=== PATIENT | male | born 1985 | race Caucasian/White ===

== ENCOUNTER 2020-04-21 18:59 | Emergency (ER) | payer MEDICARE, OTHER ==
[~2020-04-21] VITALS: Ht 170.2 cm; Wt 54.7 kg
[2020-04-21] MEDS ORDERED: LORazepam 1 MG TABLET PO ONE (20:30)
[2020-04-21 20:52] LABS: BASOPHILS % (AUTO) 0.4 % (0.0-2.0); EOSINOPHILS % (AUTO) 0.8 % (1.0-6.0); HEMATOCRIT 33.5 % (41-53); HEMOGLOBIN 11.4 g/dL (13.5-17.5); LYMPHOCYTES # (AUTO) 1.1 K/uL (1.0-4.8); LYMPHOCYTES % (AUTO) 28.6 % (22.0-44.0); MEAN CORPUSCULAR HEMOGLOBIN 33.2 pg (26.0-34.0); MEAN CORPUSCULAR HGB CONC 34.1 G/dL (31.0-37.0); MEAN CORPUSCULAR VOLUME 98 fL (80-100); MONOCYTES # (AUTO) 0.3 K/uL (0.1-1.0); NEUTROPHILS # (AUTO) 2.4 K/uL (1.8-7.7); NEUTROPHILS % (AUTO) 62.2 % (40.0-70.0); PLATELET COUNT (AUTO) 135 K/uL (150-450); RED BLOOD CELL COUNT(AUTO) 3.43 MIL/uL (4.50-5.90); RED CELL DISTRIBUTION WIDTH 13.4 % (11.5-14.5)
[2020-04-21 21:02] LABS: AMPHET/METH SCREEN,URINE POSITIVE (NEGATIVE); BARBITURATE SCREEN, URINE NEGATIVE (NEGATIVE); BENZODIAZEPINES SCREEN,URINE NEGATIVE (NEGATIVE); CANNABINOID SCREEN,URINE NEGATIVE (NEGATIVE); COCAINE SCREEN,URINE NEGATIVE (NEGATIVE); METHADONE SCREEN, URINE NEGATIVE (NEGATIVE); OPIATE SCREEN,URINE NEGATIVE (NEGATIVE)
[2020-04-21 21:12] LABS: PHENCYCLIDINE SCREEN,URINE NEGATIVE (NEGATIVE)
[2020-04-21 21:21] LABS: ANION GAP 8 mmol/L (8-16); CALCIUM, TOTAL 9.3 mg/dL (8.8-10.5); CARBON DIOXIDE 28 mmol/L (22-29); CHLORIDE 101 mmol/L (98-107); GLOMERULAR FILTR. RATE CALC > 60 mL/min (>60); GLUCOSE,RANDOM 90 mg/dL (70-110); POTASSIUM 3.4 mmol/L (3.5-5.1); SODIUM SERUM 137 mmol/L (136-145); UREA NITROGEN, BLOOD 12 mg/dL (7-18)
[2020-04-21 21:27] LABS: ALANINE AMINOTRANSFERASE 64 U/L (12-78); ALBUMIN 3.7 g/dL (3.4-5.0); ALKALINE PHOSPHATASE 109 U/L (46-116); ASPARTATE AMINOTRANSFERASE 38 U/L (15-37); BILIRUBIN,TOTAL 0.7 mg/dL (0.1-1.0); TOTAL PROTEIN, SERUM 6.7 g/dL (6.4-8.2)
[2020-04-22 01:30] VITALS: BP 120/80
== END 2020-04-22 01:40 | disposition home or self-care (01) ==
LOC: EMS 19:00
DX: R07.9 Chest pain, unspecified (principal); F15.10 Other stimulant abuse, uncomplicated; F17.210 Nicotine dependence, cigarettes, uncomplicated
CPT/HCPCS: 36415; 71045; 80053; 80307; 84484; 85025; 93005; 99285; G0480

== ENCOUNTER 2020-04-22 16:34 | Emergency (ER) | payer MEDICARE, OTHER ==
[~2020-04-22] VITALS: Ht 170.2 cm; Wt 68.2 kg
[2020-04-22 17:40] VITALS: BP 121/91
== END 2020-04-22 19:07 | disposition left against medical advice (07) ==
LOC: EMS 16:36
DX: F15.10 Other stimulant abuse, uncomplicated (principal); F17.210 Nicotine dependence, cigarettes, uncomplicated; V49.9XXA Car occupant (driver) (passenger) injured in unspecified traffic accident, initial encounter; Y93.89 Activity, other specified; Y92.488 Other paved roadways as the place of occurrence of the external cause; Y99.8 Other external cause status

== ENCOUNTER 2020-05-11 18:56 | Inpatient (IN) | payer MEDICARE, MEDICAID ==
[~2020-05-11] VITALS: Ht 167.6 cm; Wt 63.6 kg
[2020-05-11 21:00] LABS: BASOPHILS % (AUTO) 0.7 % (0.0-2.0); EOSINOPHILS % (AUTO) 2.7 % (1.0-6.0); HEMATOCRIT 33.9 % (41-53); HEMOGLOBIN 11.6 g/dL (13.5-17.5); LYMPHOCYTES # (AUTO) 1.3 K/uL (1.0-4.8); MEAN CORPUSCULAR HEMOGLOBIN 33.7 pg (26.0-34.0); MEAN CORPUSCULAR HGB CONC 34.2 G/dL (31.0-37.0); MEAN CORPUSCULAR VOLUME 99 fL (80-100); MONOCYTES # (AUTO) 0.6 K/uL (0.1-1.0); MONOCYTES % (AUTO) 12.8 % (2.0-9.0); NEUTROPHILS # (AUTO) 2.8 K/uL (1.8-7.7); NEUTROPHILS % (AUTO) 56.8 % (40.0-70.0); PLATELET COUNT (AUTO) 116 K/uL (150-450); RED BLOOD CELL COUNT(AUTO) 3.43 MIL/uL (4.50-5.90); RED CELL DISTRIBUTION WIDTH 14.3 % (11.5-14.5)
[2020-05-11 21:14] LABS: ANION GAP 7 mmol/L (8-16); CALCIUM, TOTAL 8.4 mg/dL (8.8-10.5); CARBON DIOXIDE 31 mmol/L (22-29); CHLORIDE 106 mmol/L (98-107); CREATININE 0.93 mg/dL (0.60-1.30); GLOMERULAR FILTR. RATE CALC > 60 mL/min (>60); GLUCOSE,RANDOM 129 mg/dL (70-110); POTASSIUM 3.7 mmol/L (3.5-5.1); SODIUM SERUM 144 mmol/L (136-145); UREA NITROGEN, BLOOD 13 mg/dL (7-18)
[2020-05-11 21:19] LABS: ALANINE AMINOTRANSFERASE 33 U/L (12-78); ALBUMIN 3.6 g/dL (3.4-5.0); ALKALINE PHOSPHATASE 160 U/L (46-116); ASPARTATE AMINOTRANSFERASE 22 U/L (15-37); BILIRUBIN,TOTAL 0.3 mg/dL (0.1-1.0); TOTAL PROTEIN, SERUM 7.3 g/dL (6.4-8.2)
[2020-05-11 23:06] LABS: COVID AG,FIA SOURCE NASOPHARYNGEAL
[2020-05-12] MEDS ORDERED: LORazepam 2 MG TABLET PO PRN (01:15)
[2020-05-12] MEDS ORDERED: OLANZapine 5 MG RAPDIS TABLET PO PRN (01:15)
[2020-05-12] MEDS ORDERED: ZOLPIDEM TARTRATE 10 MG TABLET PO PRN (01:15)
[2020-05-12] MEDS ORDERED: ACETAMINOPHEN 500 MG TABLET PO ONE (05:30)
[2020-05-12 08:51] VITALS: BP 112/80
[2020-05-12 16:00] VITALS: BP 113/76
[2020-05-12] MEDS ORDERED: GuaiFENesin/D-METHORPHAN [SUGAR-FREE] 200-20MG/10 ML SYRUP UDCUP PO PRN (17:30)
[2020-05-12] MEDS ORDERED: MAGNESIUM HYDROXIDE SUSPENSION 30 ML UDCUP PO PRN (17:30)
[2020-05-12] MEDS ORDERED: PROMETHAZINE HCL 25 MG TABLET PO PRN (17:30)
[2020-05-12] MEDS ORDERED: LOPERAMIDE HCL 2 MG CAPSULE PO PRN (17:30)
[2020-05-12] MEDS ORDERED: TUBERCULIN, PURIFIED PROTEIN DERIVATIVE 5 TU/0.1 ML SYRINGE ID ONE (17:30)
[2020-05-12] MEDS ORDERED: MAG HYDROX/AL HYDROX/SIMETH ES 30 ML SUSPENSION UDCUP PO PRN (17:30)
[2020-05-12] MEDS ORDERED: HydrOXYzine PAMOATE 50 MG CAPSULE PO PRN (17:30)
[2020-05-12] MEDS ORDERED: OLANZapine 5 MG RAPDIS TABLET PO SCH (21:00)
[2020-05-13 08:00] VITALS: BP 122/74
[2020-05-13] MEDS: THIAMINE 100 MG TABLET PO SCH ×2 (08:14→16:24)
[2020-05-13] MEDS: MULTIVITAMINS WITH MINERALS, THERAPEUTIC TABLET PO SCH (08:14)
[2020-05-13] MEDS: ACETAMINOPHEN 325 MG TABLET PO PRN ×3 (08:15→21:11)
[2020-05-13] MEDS: NALTREXONE HCL 50 MG TABLET PO SCH (08:15)
[2020-05-13] MEDS: FOLIC ACID 1 MG TABLET PO SCH (08:15)
[2020-05-13] MEDS: OMEGA-3/DHA/EPA/FISH OIL 1,000 MG CAPSULE PO SCH (08:15)
[2020-05-13] MEDS ORDERED: FLUoxetine HCL 20 MG CAPSULE PO SCH ×2 (09:00→21:00)
[2020-05-13 09:05] LABS: AMPHET/METH SCREEN,URINE NEGATIVE (NEGATIVE); BARBITURATE SCREEN, URINE NEGATIVE (NEGATIVE); BENZODIAZEPINES SCREEN,URINE NEGATIVE (NEGATIVE); CANNABINOID SCREEN,URINE NEGATIVE (NEGATIVE); COCAINE SCREEN,URINE NEGATIVE (NEGATIVE); METHADONE SCREEN, URINE NEGATIVE (NEGATIVE); OPIATE SCREEN,URINE NEGATIVE (NEGATIVE); PHENCYCLIDINE SCREEN,URINE NEGATIVE (NEGATIVE)
[2020-05-13 09:06] LABS: APPEARANCE,URINE CLEAR (CLEAR); BILIRUBIN,URINE NEGATIVE (NEGATIVE); GLUCOSE, URINE (UA) NEGATIVE (NEGATIVE); KETONES,URINE NEGATIVE (NEGATIVE); LEUKOCYTE ESTERASE ,URINE NEGATIVE (NEGATIVE); NITRATE,URINE NEGATIVE (NEGATIVE); OCCULT BLOOD,URINE NEGATIVE (NEGATIVE); PH,URINE 6.5 (5.0-8.0); PROTEIN,URINE NEGATIVE (NEGATIVE); UROBILINOGEN,URINE 0.2 mg/dL (<=1.0)
[2020-05-13 10:34] LABS: ANION GAP 7 mmol/L (8-16); CALCIUM, TOTAL 8.9 mg/dL (8.8-10.5); CARBON DIOXIDE 29 mmol/L (22-29); CHLORIDE 109 mmol/L (98-107); CHOL/HDL RATIO 2.3 (4.2-7.3); CHOLESTEROL 123 mg/dL (131-200); CREATINE KINASE, TOTAL ONLY 58 U/L (39-308); CREATININE 1.06 mg/dL (0.60-1.30); FREE T4 (FREE THYROXINE) 0.92 ng/dL (0.76-1.46); GLOMERULAR FILTR. RATE CALC > 60 mL/min (>60); GLUCOSE,RANDOM 84 mg/dL (70-110); HDL CHOLESTEROL 54 mg/dL (40-60); HEMOGLOBIN A1C 4.9 % (3.8-5.6); LDL CHOL (CALC.) 54 mg/dL (0-130); POTASSIUM 4.6 mmol/L (3.5-5.1); SODIUM SERUM 145 mmol/L (136-145); TRIGLYCERIDES 74 mg/dL (15-150); UREA NITROGEN, BLOOD 24 mg/dL (7-18)
[2020-05-13 10:59] LABS: THYROID STIMULATING HORMONE 1.04 uIU/mL (0.36-3.74)
[2020-05-13 16:00] VITALS: BP 112/71
[2020-05-13] MEDS: OLANZapine 10 MG RAPDIS TABLET PO SCH (20:07)
[2020-05-14] MEDS: NALTREXONE HCL 50 MG TABLET PO SCH (08:46)
[2020-05-14] MEDS: OMEGA-3/DHA/EPA/FISH OIL 1,000 MG CAPSULE PO SCH (08:46)
[2020-05-14] MEDS: MULTIVITAMINS WITH MINERALS, THERAPEUTIC TABLET PO SCH (08:46)
[2020-05-14] MEDS: FOLIC ACID 1 MG TABLET PO SCH (08:46)
[2020-05-14] MEDS: THIAMINE 100 MG TABLET PO SCH ×2 (08:46→16:11)
[2020-05-14 09:31] VITALS: BP 102/59
[2020-05-14 16:11] VITALS: BP 127/64
[2020-05-14] MEDS: ACETAMINOPHEN 325 MG TABLET PO PRN ×2 (16:12→20:21)
[2020-05-14] MEDS: OLANZapine 10 MG RAPDIS TABLET PO SCH (20:21)
[2020-05-15] MEDS: ACETAMINOPHEN 325 MG TABLET PO PRN ×2 (04:13→16:54)
[2020-05-15 08:00] VITALS: BP 122/77
[2020-05-15] MEDS: NALTREXONE HCL 50 MG TABLET PO SCH (08:21)
[2020-05-15] MEDS: OMEGA-3/DHA/EPA/FISH OIL 1,000 MG CAPSULE PO SCH (08:21)
[2020-05-15] MEDS: THIAMINE 100 MG TABLET PO SCH ×2 (08:21→16:54)
[2020-05-15] MEDS: MULTIVITAMINS WITH MINERALS, THERAPEUTIC TABLET PO SCH (08:21)
[2020-05-15] MEDS: FOLIC ACID 1 MG TABLET PO SCH (08:21)
[2020-05-15] MEDS ORDERED: PARoxetine HCL 20 MG TABLET PO SCH (09:00)
[2020-05-15 16:51] VITALS: BP 120/73
[2020-05-15 16:52] VITALS: BP 120/73
[2020-05-15] MEDS: PARoxetine HCL 20 MG TABLET PO SCH (20:15)
[2020-05-15] MEDS: OLANZapine 10 MG RAPDIS TABLET PO SCH (20:15)
[2020-05-16] MEDS: MULTIVITAMINS WITH MINERALS, THERAPEUTIC TABLET PO SCH (08:12)
[2020-05-16] MEDS: NALTREXONE HCL 50 MG TABLET PO SCH (08:13)
[2020-05-16] MEDS: THIAMINE 100 MG TABLET PO SCH ×2 (08:13→16:03)
[2020-05-16] MEDS: FOLIC ACID 1 MG TABLET PO SCH (08:13)
[2020-05-16] MEDS: OMEGA-3/DHA/EPA/FISH OIL 1,000 MG CAPSULE PO SCH (08:14)
[2020-05-16 08:39] VITALS: BP 125/67
[2020-05-16] MEDS: MAGNESIUM OXIDE 400 MG TABLET PO SCH (09:03)
[2020-05-16 10:27] LABS: PROTHROMBIN TIME 10.9 SEC (9.4-11.6)
[2020-05-16] MEDS: ACETAMINOPHEN 325 MG TABLET PO PRN (16:03)
[2020-05-16 16:05] VITALS: BP 120/67
[2020-05-16] MEDS: PARoxetine HCL 20 MG TABLET PO SCH (20:16)
[2020-05-16] MEDS: OLANZapine 10 MG RAPDIS TABLET PO SCH (20:16)
[2020-05-17 08:50] VITALS: BP 140/88
[2020-05-17] MEDS: THIAMINE 100 MG TABLET PO SCH ×2 (08:52→16:15)
[2020-05-17] MEDS: MAGNESIUM OXIDE 400 MG TABLET PO SCH (08:52)
[2020-05-17] MEDS: FOLIC ACID 1 MG TABLET PO SCH (08:52)
[2020-05-17] MEDS: OMEGA-3/DHA/EPA/FISH OIL 1,000 MG CAPSULE PO SCH (08:52)
[2020-05-17] MEDS: MULTIVITAMINS WITH MINERALS, THERAPEUTIC TABLET PO SCH (08:53)
[2020-05-17] MEDS: NALTREXONE HCL 50 MG TABLET PO SCH (08:53)
[2020-05-17] MEDS: ACETAMINOPHEN 325 MG TABLET PO PRN (08:54)
[2020-05-17 16:33] VITALS: BP 124/76
[2020-05-17] MEDS: PARoxetine HCL 20 MG TABLET PO SCH (20:14)
[2020-05-17] MEDS: OLANZapine 10 MG RAPDIS TABLET PO SCH (20:14)
[2020-05-18 07:11] LABS: ALANINE AMINOTRANSFERASE 33 U/L (12-78); ALBUMIN 3.8 g/dL (3.4-5.0); ALKALINE PHOSPHATASE 93 U/L (46-116); ANION GAP 9 mmol/L (8-16); ASPARTATE AMINOTRANSFERASE 19 U/L (15-37); BILIRUBIN,TOTAL 0.3 mg/dL (0.1-1.0); CALCIUM, TOTAL 9.1 mg/dL (8.8-10.5); CARBON DIOXIDE 26 mmol/L (22-29); CHLORIDE 110 mmol/L (98-107); CREATININE 1.14 mg/dL (0.60-1.30); GLOMERULAR FILTR. RATE CALC > 60 mL/min (>60); GLUCOSE,RANDOM 173 mg/dL (70-110); POTASSIUM 4.5 mmol/L (3.5-5.1); SODIUM SERUM 145 mmol/L (136-145); UREA NITROGEN, BLOOD 32 mg/dL (7-18)
[2020-05-18 08:17] LABS: CREATINE KINASE, TOTAL ONLY 34 U/L (39-308)
[2020-05-18] MEDS: MULTIVITAMINS WITH MINERALS, THERAPEUTIC TABLET PO SCH (08:28)
[2020-05-18] MEDS: OMEGA-3/DHA/EPA/FISH OIL 1,000 MG CAPSULE PO SCH (08:28)
[2020-05-18] MEDS: NALTREXONE HCL 50 MG TABLET PO SCH (08:29)
[2020-05-18] MEDS: MAGNESIUM OXIDE 400 MG TABLET PO SCH (08:29)
[2020-05-18] MEDS: THIAMINE 100 MG TABLET PO SCH ×2 (08:29→16:25)
[2020-05-18] MEDS: FOLIC ACID 1 MG TABLET PO SCH (08:29)
[2020-05-18 08:43] VITALS: BP 141/78
[2020-05-18 15:38] LABS: COVID AG,FIA SOURCE NASOPHARYNGEAL
[2020-05-18 19:01] VITALS: BP 124/74
[2020-05-18] MEDS: PARoxetine HCL 20 MG TABLET PO SCH (20:00)
[2020-05-18] MEDS: ACETAMINOPHEN 325 MG TABLET PO PRN (20:01)
[2020-05-18] MEDS: OLANZapine 10 MG RAPDIS TABLET PO SCH (20:01)
[2020-05-19 05:49] VITALS: BP 122/82
[2020-05-19 08:30] VITALS: BP 127/77
[2020-05-19] MEDS: OMEGA-3/DHA/EPA/FISH OIL 1,000 MG CAPSULE PO SCH (08:45)
[2020-05-19] MEDS: FOLIC ACID 1 MG TABLET PO SCH (08:45)
[2020-05-19] MEDS: MAGNESIUM OXIDE 400 MG TABLET PO SCH (08:45)
[2020-05-19] MEDS: NALTREXONE HCL 50 MG TABLET PO SCH (08:46)
[2020-05-19] MEDS: THIAMINE 100 MG TABLET PO SCH ×2 (08:46→16:24)
[2020-05-19] MEDS: MULTIVITAMINS WITH MINERALS, THERAPEUTIC TABLET PO SCH (09:00)
[2020-05-19 10:07] LABS: HIV 1-2 SCREEN 4TH GEN W/RFLX Non Reactive (Non Reactive)
[2020-05-19 16:58] VITALS: BP 128/78
[2020-05-19] MEDS: OLANZapine 10 MG RAPDIS TABLET PO SCH (20:25)
[2020-05-19] MEDS: PARoxetine HCL 20 MG TABLET PO SCH (20:26)
[2020-05-20 08:54] VITALS: BP 124/76
[2020-05-20] MEDS: NALTREXONE HCL 50 MG TABLET PO SCH (08:58)
[2020-05-20] MEDS: MULTIVITAMINS WITH MINERALS, THERAPEUTIC TABLET PO SCH (08:58)
[2020-05-20] MEDS: OMEGA-3/DHA/EPA/FISH OIL 1,000 MG CAPSULE PO SCH (08:58)
[2020-05-20] MEDS: MAGNESIUM OXIDE 400 MG TABLET PO SCH (08:58)
[2020-05-20] MEDS: FOLIC ACID 1 MG TABLET PO SCH (08:58)
[2020-05-20] MEDS: THIAMINE 100 MG TABLET PO SCH ×2 (08:58→16:20)
[2020-05-20] MEDS: PARoxetine HCL 20 MG TABLET PO SCH (20:12)
[2020-05-20] MEDS: OLANZapine 5 MG RAPDIS TABLET PO SCH (20:13)
[2020-05-21 03:56] VITALS: BP 126/82
[2020-05-21 08:00] VITALS: BP 128/72
[2020-05-21] MEDS: OMEGA-3/DHA/EPA/FISH OIL 1,000 MG CAPSULE PO SCH (08:04)
[2020-05-21] MEDS: THIAMINE 100 MG TABLET PO SCH ×2 (08:04→16:07)
[2020-05-21] MEDS: NALTREXONE HCL 50 MG TABLET PO SCH (08:04)
[2020-05-21] MEDS: FOLIC ACID 1 MG TABLET PO SCH (08:05)
[2020-05-21] MEDS: MAGNESIUM OXIDE 400 MG TABLET PO SCH (08:05)
[2020-05-21] MEDS: MULTIVITAMINS WITH MINERALS, THERAPEUTIC TABLET PO SCH (08:06)
[2020-05-21] MEDS: ACETAMINOPHEN 325 MG TABLET PO PRN ×2 (09:36→16:08)
[2020-05-21 16:30] VITALS: BP 131/77
[2020-05-21] MEDS: OLANZapine 5 MG RAPDIS TABLET PO SCH (20:02)
[2020-05-21] MEDS: PARoxetine HCL 20 MG TABLET PO SCH (20:03)
[2020-05-22] MEDS: NALTREXONE HCL 50 MG TABLET PO SCH (08:50)
[2020-05-22] MEDS: OMEGA-3/DHA/EPA/FISH OIL 1,000 MG CAPSULE PO SCH (08:50)
[2020-05-22] MEDS: MAGNESIUM OXIDE 400 MG TABLET PO SCH (08:50)
[2020-05-22] MEDS: FOLIC ACID 1 MG TABLET PO SCH (08:50)
[2020-05-22] MEDS: THIAMINE 100 MG TABLET PO SCH ×2 (08:50→16:26)
[2020-05-22] MEDS: MULTIVITAMINS WITH MINERALS, THERAPEUTIC TABLET PO SCH (08:50)
[2020-05-22 09:00] VITALS: BP 133/85
[2020-05-22 16:42] VITALS: BP 114/85
[2020-05-22] MEDS ORDERED: QUEtiapine FUMARATE 100 MG TABLET PO PRN (20:45)
[2020-05-22] MEDS: PARoxetine HCL 20 MG TABLET PO SCH (21:17)
[2020-05-22] MEDS: QUEtiapine FUMARATE 200 MG TABLET PO SCH (21:17)
[2020-05-23] MEDS: ACETAMINOPHEN 325 MG TABLET PO PRN (05:56)
[2020-05-23] MEDS: MAGNESIUM OXIDE 400 MG TABLET PO SCH (08:15)
[2020-05-23] MEDS: NALTREXONE HCL 50 MG TABLET PO SCH (08:15)
[2020-05-23] MEDS: OMEGA-3/DHA/EPA/FISH OIL 1,000 MG CAPSULE PO SCH (08:16)
[2020-05-23] MEDS: MULTIVITAMINS WITH MINERALS, THERAPEUTIC TABLET PO SCH (08:16)
[2020-05-23 08:51] VITALS: BP 138/91
[2020-05-23 16:00] VITALS: BP 134/83
[2020-05-23] MEDS: QUEtiapine FUMARATE 200 MG TABLET PO SCH (20:12)
[2020-05-23] MEDS: PARoxetine HCL 20 MG TABLET PO SCH (20:12)
[2020-05-24 05:33] VITALS: BP 130/84
[2020-05-24 08:55] VITALS: BP 119/82
[2020-05-24] MEDS: OMEGA-3/DHA/EPA/FISH OIL 1,000 MG CAPSULE PO SCH (09:00)
[2020-05-24] MEDS: MULTIVITAMINS WITH MINERALS, THERAPEUTIC TABLET PO SCH (09:00)
[2020-05-24] MEDS: NALTREXONE HCL 50 MG TABLET PO SCH (09:00)
[2020-05-24] MEDS: MAGNESIUM OXIDE 400 MG TABLET PO SCH (09:00)
[2020-05-24 09:02] VITALS: BP 119/82
[2020-05-24 10:02] VITALS: BP 129/3
[2020-05-24] MEDS ORDERED: QUET200T PO (13:23)
[2020-05-24] MEDS ORDERED: PARO10TA89 PO (13:23)
[2020-05-24] MEDS ORDERED: NALT50TA6 PO (13:23)
[2020-05-24] MEDS ORDERED: MAGOX PO (13:23)
[2020-05-24] MEDS ORDERED: OMEG100033 PO (13:23)
[2020-05-24] MEDS ORDERED: MULT-1239 PO (13:23)
[2020-05-24 16:31] VITALS: BP 122/68
== END 2020-05-24 16:15 | disposition home or self-care (01) | DRG 885 ==
LOC: EMS 18:56 → 3EX 05-12 07:58
PROVIDERS: ADMIT Psychiatry & Neurology Psychiatry; ATTEND Psychiatry & Neurology Psychiatry
DX: F33.2 Major depressive disorder, recurrent severe without psychotic features (principal); B18.1 Chronic viral hepatitis B without delta-agent; R45.851 Suicidal ideations; F25.9 Schizoaffective disorder, unspecified; D64.9 Anemia, unspecified; F15.10 Other stimulant abuse, uncomplicated; E87.6 Hypokalemia; R73.9 Hyperglycemia, unspecified; Z59.0 Homelessness; F41.9 Anxiety disorder, unspecified; Z91.19 Patient's noncompliance with other medical treatment and regimen; F19.10 Other psychoactive substance abuse, uncomplicated; F17.210 Nicotine dependence, cigarettes, uncomplicated; F10.20 Alcohol dependence, uncomplicated; Y90.9 Presence of alcohol in blood, level not specified; E83.42 Hypomagnesemia; Z87.828 Personal history of other (healed) physical injury and trauma; Z91.14 Patient's other noncompliance with medication regimen; Z20.828 Contact with and (suspected) exposure to other viral communicable diseases
CPT/HCPCS: 80074; 83036; 83735; 84439; 84443; 86592; 86692; 86704; 86706; 86707; 87350; 87389; 87426; 87517; 93005; G0378; G0480

== ENCOUNTER 2021-05-04 12:08 | Inpatient (IN) | payer MEDICARE, MEDICAID ==
[~2021-05-04] VITALS: Ht 172.7 cm; Wt 78.5 kg
[~2021-05-04 12:08] MED LIST: DIVA-80 PO; LITH300C3 PO; NALT50TA PO; OMEG-135 PO
[2021-05-04] MEDS ORDERED: HALO5TAB2 PO (16:02)
[2021-05-04] MEDS ORDERED: ZOLPIDEM TARTRATE 10 MG TABLET PO PRN (18:00)
[2021-05-04] MEDS ORDERED: LORazepam 2 MG TABLET PO PRN (18:00)
[2021-05-04] MEDS ORDERED: HALOPERIDOL 5 MG TABLET PO PRN (18:00)
[2021-05-04] MEDS ORDERED: INFLUENZA VIRUS VACCINE QVS 2021-22 (6MO+)/PF 60 MCG/0.5 ML SYRINGE IM. ONE (18:15)
[2021-05-04 20:24] VITALS: BP 130/89
[2021-05-05 00:59] VITALS: BP 129/81
[2021-05-05] MEDS ORDERED: NICOTINE 14 MG/24 HOUR PATCH TD PRN (06:30)
[2021-05-05] MEDS ORDERED: ALBUTEROL SULFATE HFA 90 MCG/PUFF 8 GM INHALER IH PRN (06:30)
[2021-05-05] MEDS ORDERED: MAG HYDROX/AL HYDROX/SIMETH ES 30 ML SUSPENSION UDCUP PO PRN (06:30)
[2021-05-05] MEDS ORDERED: PETROLATUM,WHITE 28 GM JELLY TP PRN (06:30)
[2021-05-05] MEDS ORDERED: GuaiFENesin/D-METHORPHAN [SUGAR-FREE] 200-20MG/10 ML SYRUP UDCUP PO PRN (06:30)
[2021-05-05] MEDS ORDERED: DOCUSATE SODIUM 100 MG CAPSULE PO PRN (06:30)
[2021-05-05] MEDS ORDERED: MAGNESIUM HYDROXIDE SUSPENSION 30 ML UDCUP PO PRN (06:30)
[2021-05-05] MEDS ORDERED: CloNIDine HCL 0.1 MG TABLET PO PRN (06:30)
[2021-05-05] MEDS ORDERED: ONDANSETRON HCL 4 MG TABLET PO PRN (06:30)
[2021-05-05] MEDS ORDERED: IBUPROFEN 400 MG TABLET PO PRN (06:30)
[2021-05-05 08:01] LABS: BASOPHILS % (AUTO) 0.5 % (0.0-2.0); EOSINOPHILS % (AUTO) 4.5 % (1.0-6.0); HEMATOCRIT 39.6 % (41-53); HEMOGLOBIN 13.3 g/dL (13.5-17.5); LYMPHOCYTES # (AUTO) 1.3 K/uL (1.0-4.8); LYMPHOCYTES % (AUTO) 35.8 % (22.0-44.0); MEAN CORPUSCULAR HEMOGLOBIN 33.6 pg (26.0-34.0); MEAN CORPUSCULAR HGB CONC 33.6 G/dL (31.0-37.0); MEAN CORPUSCULAR VOLUME 100 fL (80-100); MONOCYTES # (AUTO) 0.3 K/uL (0.1-1.0); MONOCYTES % (AUTO) 8.7 % (2.0-9.0); NEUTROPHILS # (AUTO) 1.8 K/uL (1.8-7.7); NEUTROPHILS % (AUTO) 50.5 % (40.0-70.0); PLATELET COUNT (AUTO) 77 K/uL (150-450); RED BLOOD CELL COUNT(AUTO) 3.97 MIL/uL (4.50-5.90); RED CELL DISTRIBUTION WIDTH 13.6 % (11.5-14.5)
[2021-05-05 08:23] LABS: ANION GAP 6 mmol/L (8-16); CARBON DIOXIDE 27 mmol/L (22-29); CHLORIDE 109 mmol/L (98-107); CREATININE 0.85 mg/dL (0.60-1.30); GLUCOSE,RANDOM 97 mg/dL (70-110); POTASSIUM 3.9 mmol/L (3.5-5.1); SODIUM SERUM 142 mmol/L (136-145); UREA NITROGEN, BLOOD 13 mg/dL (7-18)
[2021-05-05 08:24] LABS: ALANINE AMINOTRANSFERASE 36 U/L (12-78); ALBUMIN 3.9 g/dL (3.4-5.0); ALKALINE PHOSPHATASE 74 U/L (46-116); ASPARTATE AMINOTRANSFERASE 15 U/L (15-37); BILIRUBIN,TOTAL 0.6 mg/dL (0.1-1.0); CALCIUM, TOTAL 9.3 mg/dL (8.8-10.5); CHOLESTEROL 116 mg/dL (131-200); FREE T4 (FREE THYROXINE) 1.03 ng/dL (0.76-1.46); GLOMERULAR FILTR. RATE CALC > 60 mL/min (>60); HDL CHOLESTEROL 39 mg/dL (40-60); LDL CHOL (CALC.) 54 mg/dL (0-130); THYROID STIMULATING HORMONE 0.88 uIU/mL (0.36-3.74); TOTAL PROTEIN, SERUM 7.3 g/dL (6.4-8.2); TRIGLYCERIDES 115 mg/dL (15-150)
[2021-05-05 08:28] VITALS: BP 110/67
[2021-05-05] MEDS: NICOTINE 14 MG/24 HOUR PATCH TD SCH (09:20)
[2021-05-05] MEDS: BENZTROPINE MESYLATE 1 MG TABLET PO SCH (11:09)
[2021-05-05] MEDS: ACETAMINOPHEN 325 MG TABLET PO PRN (11:16)
[2021-05-05 16:10] VITALS: BP 124/76
[2021-05-05] MEDS: TraZODone HCL 150 MG TABLET PO SCH (20:33)
[2021-05-05] MEDS: LITHIUM CARBONATE 300 MG CAPSULE PO SCH (20:33)
[2021-05-05] MEDS: HALOPERIDOL 10 MG TABLET PO SCH (20:33)
[2021-05-05] MEDS: DIVALPROEX SODIUM 500 MG ER TABLET PO SCH (20:34)
[2021-05-06 05:15] VITALS: BP 111/70
[2021-05-06 08:23] VITALS: BP 115/71
[2021-05-06] MEDS: BENZTROPINE MESYLATE 1 MG TABLET PO SCH (08:53)
[2021-05-06] MEDS: NICOTINE 14 MG/24 HOUR PATCH TD SCH (08:53)
[2021-05-06 16:25] VITALS: BP 106/63
[2021-05-06] MEDS: ACETAMINOPHEN 325 MG TABLET PO PRN (19:23)
[2021-05-06] MEDS: HALOPERIDOL 10 MG TABLET PO SCH (20:00)
[2021-05-06] MEDS: TraZODone HCL 150 MG TABLET PO SCH (20:00)
[2021-05-06] MEDS: DIVALPROEX SODIUM 500 MG ER TABLET PO SCH (20:00)
[2021-05-06] MEDS: LITHIUM CARBONATE 300 MG CAPSULE PO SCH (20:01)
[2021-05-07 05:37] VITALS: BP 100/65
[2021-05-07 08:26] VITALS: BP 105/61
[2021-05-07] MEDS: NICOTINE 14 MG/24 HOUR PATCH TD SCH (08:29)
[2021-05-07] MEDS: BENZTROPINE MESYLATE 1 MG TABLET PO SCH (08:29)
[2021-05-07] MEDS: ACETAMINOPHEN 325 MG TABLET PO PRN (08:39)
[2021-05-07] MEDS ORDERED: HALO10 PO (12:05)
[2021-05-07] MEDS ORDERED: LITH300C3 PO (12:06)
[2021-05-07] MEDS ORDERED: BENZ1TAB10 PO (12:07)
[2021-05-07] MEDS ORDERED: TRAZ150T80 PO (12:07)
[2021-05-07 16:16] VITALS: BP 138/67
== END 2021-05-07 16:30 | disposition home or self-care (01) | DRG 885 ==
LOC: B2X 17:57
PROVIDERS: ADMIT Psychiatry & Neurology Child & Adolescent Psychiatry; ATTEND Psychiatry & Neurology Child & Adolescent Psychiatry
DX: F20.0 Paranoid schizophrenia (principal); D72.819 Decreased white blood cell count, unspecified; F10.10 Alcohol abuse, uncomplicated; F20.9 Schizophrenia, unspecified; F32.A Depression, unspecified; F41.9 Anxiety disorder, unspecified; D64.9 Anemia, unspecified; Z91.011 Allergy to milk products; Z79.899 Other long term (current) drug therapy; Z91.19 Patient's noncompliance with other medical treatment and regimen; Z71.51 Drug abuse counseling and surveillance of drug abuser
CPT/HCPCS: 80053; 80061; 83036; 84439; 84443; 85025

== ENCOUNTER 2023-03-17 08:48 | Emergency (ER) | payer MEDICARE, OTHER ==
[~2023-03-17] VITALS: Ht 177.8 cm; Wt 78.5 kg
[~2023-03-17 08:48] MED LIST changes: +BENZ1TAB84 PO; -DIVA-80 PO; +DIVA500T53 PO; +HALO10TA21 PO; -NALT50TA PO; -OMEG-135 PO; +TRAZ150T80 PO
[2023-03-17 08:51] VITALS: TEMP 98
[2023-03-17 09:55] LABS: BASOPHILS % (AUTO) 1.1 % (0.0-2.0); EOSINOPHILS % (AUTO) 3.5 % (1.0-6.0); HEMATOCRIT 46.8 % (41-53); HEMOGLOBIN 16.2 g/dL (13.5-17.5); LYMPHOCYTES # (AUTO) 1.6 K/uL (1.0-4.8); LYMPHOCYTES % (AUTO) 32.7 % (22.0-44.0); MEAN CORPUSCULAR HEMOGLOBIN 32.6 pg (26.0-34.0); MEAN CORPUSCULAR HGB CONC 34.7 G/dL (31.0-37.0); MEAN CORPUSCULAR VOLUME 94 fL (80-100); MONOCYTES # (AUTO) 0.4 K/uL (0.1-1.0); MONOCYTES % (AUTO) 7.9 % (2.0-9.0); NEUTROPHILS # (AUTO) 2.6 K/uL (1.8-7.7); NEUTROPHILS % (AUTO) 54.8 % (40.0-70.0); PLATELET COUNT (AUTO) 107 K/uL (150-450); RED BLOOD CELL COUNT(AUTO) 4.97 MIL/uL (4.50-5.90); RED CELL DISTRIBUTION WIDTH 13.1 % (11.5-14.5); WHITE BLOOD COUNT (AUTO) 4.8 K/uL (4.5-11.0)
[2023-03-17 09:57] LABS: ANION GAP 10 mmol/L (8-16); CALCIUM, TOTAL 9.4 mg/dL (8.8-10.5); CARBON DIOXIDE 24 mmol/L (22-29); CHLORIDE 106 mmol/L (98-107); CREATININE 0.95 mg/dL (0.60-1.30); GLOMERULAR FILTR. RATE CALC > 60 mL/min (>60); GLUCOSE,RANDOM 98 mg/dL (70-110); POTASSIUM 4.3 mmol/L (3.5-5.1); SODIUM SERUM 140 mmol/L (136-145); UREA NITROGEN, BLOOD 9 mg/dL (7-18)
[2023-03-17 10:04] LABS: ALANINE AMINOTRANSFERASE 52 U/L (12-78); ALBUMIN 4.3 g/dL (3.4-5.0); ALKALINE PHOSPHATASE 76 U/L (46-116); ASPARTATE AMINOTRANSFERASE 26 U/L (15-37); BILIRUBIN,TOTAL 0.9 mg/dL (0.1-1.0); CREATINE KINASE, TOTAL ONLY 67 U/L (39-308); TOTAL PROTEIN, SERUM 7.8 g/dL (6.4-8.2)
[2023-03-17 10:44] LABS: APPEARANCE,URINE CLEAR (CLEAR); BILIRUBIN,URINE NEGATIVE (NEGATIVE); COLOR,URINE YELLOW (YELLOW); GLUCOSE, URINE (UA) NEGATIVE (NEGATIVE); KETONES,URINE NEGATIVE (NEGATIVE); LEUKOCYTE ESTERASE ,URINE NEGATIVE (NEGATIVE); NITRATE,URINE NEGATIVE (NEGATIVE); OCCULT BLOOD,URINE NEGATIVE (NEGATIVE); PH,URINE 6.5 (5.0-8.0); PH,URINE DRUG SCREEN 6.5 (5.0-8.0); PROTEIN,URINE NEGATIVE (NEGATIVE); UROBILINOGEN,URINE <=1.0 mg/dL (<=1.0)
[2023-03-17 10:54] LABS: ALCOHOL, URINE DRUG SCREEN NEGATIVE (NEGATIVE); AMPHET/METH SCREEN,URINE NEGATIVE (NEGATIVE); BARBITURATE SCREEN, URINE NEGATIVE (NEGATIVE); BENZODIAZEPINES SCREEN,URINE NEGATIVE (NEGATIVE); CANNABINOID SCREEN,URINE NEGATIVE (NEGATIVE); COCAINE SCREEN,URINE NEGATIVE (NEGATIVE); METHADONE SCREEN, URINE NEGATIVE (NEGATIVE); OPIATE SCREEN,URINE NEGATIVE (NEGATIVE); PHENCYCLIDINE SCREEN,URINE NEGATIVE (NEGATIVE)
[2023-03-17 11:39] VITALS: BP 130/96; PULSE 88; RESP 18
== END 2023-03-17 11:52 | disposition home or self-care (01) ==
LOC: EMS 08:48
DX: R31.9 Hematuria, unspecified (principal); F31.9 Bipolar disorder, unspecified; F20.9 Schizophrenia, unspecified; F17.210 Nicotine dependence, cigarettes, uncomplicated; F15.90 Other stimulant use, unspecified, uncomplicated; Z98.890 Other specified postprocedural states; Z91.011 Allergy to milk products
CPT/HCPCS: 80053; 80307; 81003; 82550; 85025; 99283